=== PATIENT | female | born 1955 | race Caucasian/White ===

== ENCOUNTER → 2016-12-19 | Outpatient (CLI) | payer MEDICARE, MEDICAID ==
[~2016-12-19] MED LIST: ABILIFY5 MG PO; COREG6.25 MG PO; DESYREL DPS150 MG PO; NORVASC DPS10 MG PO; ULTRAM DPS50 MG PO; VALIUM5 MG PO; VIIBRYD40 MG PO
== END | disposition home or self-care (01) ==
LOC: RAD.S 12-16 17:03
DX: M70.51 Other bursitis of knee, right knee (principal); M70.52 Other bursitis of knee, left knee; M79.604 Pain in right leg; M79.605 Pain in left leg; M25.862 Other specified joint disorders, left knee; M25.861 Other specified joint disorders, right knee

== ENCOUNTER → 2016-12-20 | Outpatient (CLI) | payer MEDICARE, MEDICAID | END | disposition home or self-care (01) | LOC: RAD.S 11:39 | PROC: 0S9D3ZZ Drainage of Left Knee Joint, Percutaneous Approach (ICD-10-PCS; principal; 2016-12-20) | PROC: 0S993ZZ Drainage of Right Hip Joint, Percutaneous Approach (ICD-10-PCS; principal; 2016-12-20) | DX: M70.51 Other bursitis of knee, right knee (principal); M70.52 Other bursitis of knee, left knee ==